=== PATIENT | male | born 1990 | race Caucasian/White ===

== ENCOUNTER 2018-12-02 09:16 | Emergency (ER) | payer SELFPAY ==
[~2018-12-02] VITALS: Ht 177.8 cm; Wt 80.0 kg
[2018-12-02 09:28] VITALS: BP 97/70
--- NOTE | 2018-12-02 09:52 | NUR ---
PATIENT BROUGHT BACK FROM TRIAGE WITH CHIEF COMPLAINT OF NEEDING A DOCTORS NOTE AFTER A FEVER. NO CURRENT COMPLAINTS, ALL SYMPTOMS RESOLVED.
== END 2018-12-02 10:26 | disposition home or self-care (01) ==
LOC: ED 10:10
DX: R50.9 Fever, unspecified (principal); R53.83 Other fatigue
CPT/HCPCS: 99281